=== PATIENT | male | born 1945 | race Caucasian/White ===

== ENCOUNTER 2016-12-01 09:10 | Emergency (ER) | payer OTHER, MEDICARE ==
--- NOTE | 2016-12-01 09:47 | PDOC ---
History of Present Illness - General Chief Complaint: Bite Stated Complaint: TICK ON BACK Time Seen by Provider: 12/01/16 09:16 History Source: Patient Exam Limitations: No Limitations - History of Present Illness Initial Comments: 12/01/16 09:47 This is a 71 yo M presenting to the ER s/p possible tick bite. He states he was in the [place] for 30 minutes When he came home, he noted 3 ticks that he brushed off of his pants He also noted that his upper back felt itchy He has had tick bites in the past Had his friend look at this area His friend noted that he had a tick in the upper back His friend was able to remove the ticks body but doesnt think he got the head PMH: HTN PSH: Rotator cuff surgery Meds: please see MAR ALL: PCN, Tetanus shot Social: GENERAL/CONSTITUTIONAL: No: fever, chills, weakness, loss of appetite. MUSCULOSKELETAL: No: back pain, neck pain, joint pain, muscle swelling or pain SKIN: Yes: erythema and pruritis No: lesions, pallor, rash or easy bruising. NEUROLOGIC: No: headache, vertigo, paresthesias, weakness ENDOCRINE: No: unexplained weight gain or loss HEMATOLOGIC/LYMPHATIC: No: anemia, easy bleeding, swelling nodes. GENERAL: The patient is in no acute distress. MUSCULOSKELETAL: Back non-tender to palpation, no CVA tenderness SKIN: (+) area of 5 x 3 induration and erythema, surrounding an area with a scab , no tick immediately visualized 12/01/16 09:48 Past History - Past Medical History Allergies/Adverse Reactions: Allergies Allergy/AdvReac Type Severity Reaction Status Date / Time Penicillins Allergy Unknown childhood Verified 02/19/14 11:06 Tetanus Vaccines and Toxoid Allergy Unknown Childhood Verified 02/19/14 11:06 [Tetanus Vaccines & Toxoid] Home Medications: Ambulatory Orders Amlodipine Besylate [Norvasc -] 10 mg PO DAILY 02/18/14 Aspirin [ASA -] 81 mg PO DAILY 02/18/14 Fish Oil/Borage/Flax/Om3,6,9#1 [[place] 3-6-9 Complex Softgel] 400 mg PO DAILY Multivitamin [Multivitamins] 1 each PO DAILY 02/18/14 Nebivolol HCl [Bystolic] 10 mg PO DAILY 05/29/14 Doxycycline Hyclate [Vibramycin -] 100 mg PO BID #20 capsule 12/01/16 Anemia: No Asthma: No Cancer: No Cardiac Disorders: No (CARDIAC CATH 1 YEAR AGO SECONDARY TO HTN-NEG) CVA: No COPD: No CHF: No Dementia: No Diabetes: No GI Disorders: No Disorders: No HTN: Yes Hypercholesterolemia: No Liver Disease: No Seizures: No Thyroid Disease: No - Surgical History Abdominal Surgery: No Appendectomy: No Cardiac Surgery: Yes (CARDIAC CATH 1 YEAR AGO DUE TO HTN-NEG) Cholecystectomy: No Lung Surgery: No Neurologic Surgery: No Orthopedic Surgery: Yes (RIGHT ROTATOR CUFF REPAIR 200) - Psycho/Social/Smoking Cessation Hx Smoking History: Former smoker Have you smoked in the past 12 months: No If you are a former smoker, when did you quit?: 25 YEARS Hx Alcohol Use: Yes (3X/WEEK) Drug/Substance Use Hx: No Substance Use Type: Alcohol Hx Substance Use Treatment: No Medical Decision Making - Medical Decision Making 12/01/16 09:57 Scab removed skin beneath the scab evaluated No tick head seen Will Send lyme titers Start Doxycycline Pt should follow up with dermatology and PMD *DC/Admit/Observation/Transfer Diagnosis at time of Disposition: Tick bite of back Qualifiers: Encounter type: initial encounter Qualified Code(s): S30.860A - Insect bite ( nonvenomous) of lower back and pelvis, initial encounter - Discharge Dispostion Disposition: HOME Condition at time of disposition: Good Admit: No - Prescriptions Prescriptions: Doxycycline Hyclate [Vibramycin -] 100 mg PO BID #20 capsule - Referrals Referrals: Ranjit Chapa [Primary Care Provider] - Zoya Pelletier [Staff Physician] - - Patient Instructions Printed Discharge Instructions: How to Care for an Insect Bite or Sting Additional Instructions: Naun Dodsoncaleb Thank you for coming in to the ER for evaluation Please call the ER in 2-3 business days for your Lyme Results Please take antibiotic as prescribed for possible lyme exposure Please follow up with the [employer] for re evaluation Monitor the site for increased redness
[2016-12-01] MEDS ORDERED: DOXYCYCLINE HYCLATE 100 MG CAPSULE PO ONE ×2 (10:00→10:23)
[2016-12-01 10:30] VITALS: BP 130/80; PULSE 82; TEMP 98.7; BMI 27.2
[2016-12-04 00:06] LABS: IgG P18 Absent (.); IgG P23 Absent (.); IgG P28 Absent (.); IgG P30 Present (.); IgG P39 Absent (.); IgG P41 Absent (.); IgG P45 Absent (.); IgG P58 Present (.); IgG P66 Present (.); IgG P93 Absent (.); IgM P23 Absent (.); IgM P39 Absent (.); IgM P41 Absent (.); LYME IGM WB INTERPRE Negative (.)
--- NOTE | 2016-12-05 12:50 | PDOC ---
*Physical Exam - Vital Signs Last Vital Signs Temp Pulse Resp BP Pulse Ox 98.7 F 82 15 130/80 100 12/01/16 09:15 12/01/16 09:15 12/01/16 09:15 12/01/16 09:15 12/01/16 09:15 ED Treatment Course - Medications Given in the ED: ED Medications Discontinued Medications Generic Name Dose Route Start Last Admin Trade Name Jayro PRN Reason Stop Dose Admin Doxycycline Hyclate 100 mg 12/01/16 10:00 12/01/16 10:25 Vibramycin - PO 12/01/16 10:01 100 mg ONCE ONE Administration Progress Note - Progress Note Progress Note: Patient called , requesting lab reports as advised in ER. Patient informed about Lyme titer result. He is taking medication as prescribed. No symptms. Faxing results to kish[facility] SANC[facility] He will be following with his PCP, Dr Ranjit Chapa *DC/Admit/Observation/Transfer Diagnosis at time of Disposition: Tick bite of back Qualifiers: Encounter type: initial encounter Qualified Code(s): S30.860A - Insect bite ( nonvenomous) of lower back and pelvis, initial encounter - Discharge Dispostion Disposition: HOME Condition at time of disposition: Good - Prescriptions Prescriptions: Doxycycline Hyclate [Vibramycin -] 100 mg PO BID #20 capsule - Referrals Referrals: Ranjit Chapa [Primary Care Provider] - Zoya Pelletier [Staff Physician] - - Patient Instructions Printed Discharge Instructions: How to Care for an Insect Bite or Sting Additional Instructions: Mr. Dodsoncaleb Thank you for coming in to the ER for evaluation Please call the ER in 2-3 business days for your Lyme Results Please take antibiotic as prescribed for possible lyme exposure Please follow up with the [facility] for re evaluation Monitor the site for increased redness - Post Discharge Activity
== END 2016-12-01 10:32 | disposition home or self-care (01) ==
LOC: FER 09:10
DX: S30.860A Insect bite (nonvenomous) of lower back and pelvis, initial encounter (principal); W57.XXXA Bitten or stung by nonvenomous insect and other nonvenomous arthropods, initial encounter; Y93.9 Activity, unspecified; Y92.89 Other specified places as the place of occurrence of the external cause; I10 Essential (primary) hypertension; Z87.891 Personal history of nicotine dependence
CPT/HCPCS: 36415; 86618; 99282-25

== ENCOUNTER 2017-02-25 10:16 | Emergency (ER) | payer OTHER, MEDICARE ==
[2017-02-25 10:27] VITALS: BP 144/90; PULSE 65; TEMP 98; BMI 27.9
[2017-02-25] MEDS ORDERED: LIDOCAINE HCL 1%, 10 MG/ML (50 mL VIAL) SQ ONE (10:29)
--- NOTE | 2017-02-25 10:50 | PDOC ---
History of Present Illness - General Chief Complaint: Laceration Stated Complaint: LEFT PINKY LACERATION Time Seen by Provider: 02/25/17 10:19 History Source: Patient Exam Limitations: No Limitations - History of Present Illness Initial Comments: 02/25/17 10:46 This patient is a 71-year-old [id number] male presented to emergency department with laceration of his left pinky finger. Patient states he was in his usual state of health, he was in the process of trimming a tree using clippers. Patient states that he missed the branch and clipped the lateral portion of his little finger. This occurred yesterday at approximately noon. His bandaged the area He noted that he has persistent bleeding He decided to come in for evaluation today PMH: HTN, Bladder Cancer (Remission) PSH: Rotator cuff repair, Biceps repair Meds: please see MAR ALL: Pcn, Tetanus shot Social: denies drug or cigarette use GENERAL/CONSTITUTIONAL: No: fever, chills, weakness, loss of appetite. MUSCULOSKELETAL: No: back pain, neck pain, joint pain, muscle swelling or pain SKIN: Yes: finger laceration No: lesions, pallor, rash or easy bruising. NEUROLOGIC: No: headache, vertigo, paresthesias, weakness ENDOCRINE: No: unexplained weight gain or loss GENERAL: The patient is in no acute distress. EXTREMITIES: Normal range of motion, no edema. NEUROLOGICAL: Cranial nerves II through XII grossly intact. Normal speech. No focal neurological deficits. 2+ RP, 2+ UP Sensation intact MUSCULOSKELETAL: Back non-tender to palpation, no CVA tenderness SKIN: Ulnar side of finger, laceration, 1.5 cm on both the dorsum and the ventral side of finger Past History - Past Medical History Allergies/Adverse Reactions: Allergies Allergy/AdvReac Type Severity Reaction Status Date / Time Penicillins Allergy Unknown childhood Verified 02/25/17 10:18 Tetanus Vaccines and Toxoid Allergy Unknown Childhood Verified 02/25/17 10:18 [Tetanus Vaccines & Toxoid] Home Medications: Ambulatory Orders Amlodipine Besylate [Norvasc -] 10 mg PO DAILY 02/18/14 Aspirin [ASA -] 81 mg PO DAILY 02/18/14 Fish Oil/Borage/Flax/Om3,6,9#1 [[place] 3-6-9 Complex Softgel] 400 mg PO DAILY 05/ 29/14 Multivitamin [Multivitamins] 1 each PO DAILY 02/18/14 Nebivolol HCl [Bystolic] 10 mg PO DAILY 02/18/14 Doxycycline Hyclate [Vibramycin -] 100 mg PO BID #20 capsule 12/01/16 Cephalexin [Keflex] 250 mg PO Q6H #28 capsule 02/25/17 Oxycodone HCl/Acetaminophen [Percocet 5-325 mg Tablet] 1 tab PO Q6H #12 tab MDD 4 02/25/17 Anemia: No Asthma: No Cancer: Yes (BLADDER) Cardiac Disorders: No (CARDIAC CATH 1 YEAR AGO SECONDARY TO HTN-NEG) CVA: No COPD: No CHF: No Dementia: No Diabetes: No GI Disorders: No Disorders: No HTN: Yes Hypercholesterolemia: No Liver Disease: No Seizures: No Thyroid Disease: No - Surgical History Abdominal Surgery: No Appendectomy: No Cardiac Surgery: Yes (CARDIAC CATH 1 YEAR AGO DUE TO HTN-NEG) Cholecystectomy: No Lung Surgery: No Neurologic Surgery: No Orthopedic Surgery: Yes (RIGHT ROTATOR CUFF REPAIR 200) - Psycho/Social/Smoking Cessation Hx Anxiety: No Suicidal Ideation: No Smoking History: Former smoker Have you smoked in the past 12 months: No If you are a former smoker, when did you quit?: 25 YEARS AGO Information on smoking cessation initiated: No Hx Alcohol Use: Yes (OCCASSIONAL) Drug/Substance Use Hx: No Substance Use Type: None Hx Substance Use Treatment: No *Physical Exam - Vital Signs Last Vital Signs Temp Pulse Resp BP Pulse Ox 98 F 65 18 144/90 100 02/25/17 10:17 02/25/17 10:17 02/25/17 10:17 02/25/17 10:17 02/25/17 10:17 Medical Decision Making - Medical Decision Making 02/25/17 10:49 Will do x ray Will steri dtrip Will discharge on Keflex 02/25/17 11:42 Wound steri stripped and dressed Pt asked to follow up with plastic surgery as I am concerned about the flap I am concerned that if it is re approximated, it will become infected Will discharge to home on keflex *DC/Admit/Observation/Transfer Diagnosis at time of Disposition: Avulsion of finger tip Qualifiers: Encounter type: initial encounter Qualified Code(s): S61.209A - Unspecified open wound of unspecified finger without damage to nail, initial encounter - Discharge Dispostion Disposition: HOME Condition at time of disposition: Stable Admit: No - Prescriptions Prescriptions: Cephalexin [Keflex] 250 mg PO Q6H #28 capsule Oxycodone HCl/Acetaminophen [Percocet 5-325 mg Tablet] 1 tab PO Q6H #12 tab MDD 4 - Referrals Referrals: Alberto Harper MD [Staff Physician] - - Patient Instructions Printed Discharge Instructions: DI for Laceration Repair Steri-Strips, DI for Avulsion Laceration (Not Requiring Sutures) Additional Instructions: Jeff, Thank you for coming into the ER today. Please avoid getting your finger went, or soaking your finger. Please keep dressing in place for 24 hours. Your Steri-Strips will fall off with time. You have to follow-up with the plastic surgeon, Dr. Harper for reevaluation as I am concerned about how your finger will heal Return to the ER for redness around your laceration, drainage, fevers or chills Please monitor yourself for fevers or chills
== END 2017-02-25 12:01 | disposition home or self-care (01) ==
LOC: FER 10:16
DX: S61.217A Laceration without foreign body of left little finger without damage to nail, initial encounter (principal); W29.3XXA Contact with powered garden and outdoor hand tools and machinery, initial encounter; Y93.89 Activity, other specified; Y92.096 Garden or yard of other non-institutional residence as the place of occurrence of the external cause; I10 Essential (primary) hypertension; Z85.51 Personal history of malignant neoplasm of bladder
CPT/HCPCS: 73140-TC-LT; 99282-25